=== PATIENT | female | born 1960 | race Caucasian/White ===

== ENCOUNTER 2020-11-15 08:02 | Outpatient (RCR) | payer MEDICARE, BC | END 2020-11-15 15:55 | LOC: OPPGERO 08:02 | DX: F25.9 Schizoaffective disorder, unspecified (principal); F43.10 Post-traumatic stress disorder, unspecified; Z98.890 Other specified postprocedural states; Z86.73 Personal history of transient ischemic attack (TIA), and cerebral infarction without residual deficits; E03.9 Hypothyroidism, unspecified; M06.9 Rheumatoid arthritis, unspecified; K58.9 Irritable bowel syndrome, unspecified; M79.7 Fibromyalgia; I34.0 Nonrheumatic mitral (valve) insufficiency; Z79.899 Other long term (current) drug therapy; Z62.810 Personal history of physical and sexual abuse in childhood ==

== ENCOUNTER 2020-11-16 16:13 | Outpatient (RCR) | payer MEDICARE, BC | END 2020-12-15 13:55 | disposition still patient (30) | LOC: OPPGERO 16:13 | DX: F25.9 Schizoaffective disorder, unspecified (principal); F43.10 Post-traumatic stress disorder, unspecified; R45.851 Suicidal ideations; Z79.899 Other long term (current) drug therapy; Z98.890 Other specified postprocedural states ==

== ENCOUNTER 2020-12-16 09:52 | Outpatient (RCR) | payer MEDICARE, BC | END 2021-01-15 18:04 | disposition home or self-care (01) | LOC: OPPGERO 09:52 | DX: F43.10 Post-traumatic stress disorder, unspecified (principal); G24.01 Drug induced subacute dyskinesia; F25.0 Schizoaffective disorder, bipolar type; K58.0 Irritable bowel syndrome with diarrhea; M79.7 Fibromyalgia; Z81.1 Family history of alcohol abuse and dependence; Z86.73 Personal history of transient ischemic attack (TIA), and cerebral infarction without residual deficits; Z62.810 Personal history of physical and sexual abuse in childhood; Z73.6 Limitation of activities due to disability ==

== ENCOUNTER 2021-02-15 16:00 | Outpatient (RCR) | payer MEDICARE, BC | END 2021-03-16 12:38 | disposition home or self-care (01) | LOC: OPPGERO 16:00 | DX: F43.12 Post-traumatic stress disorder, chronic (principal); F25.0 Schizoaffective disorder, bipolar type; M06.9 Rheumatoid arthritis, unspecified; K58.9 Irritable bowel syndrome, unspecified; Z62.810 Personal history of physical and sexual abuse in childhood; Z62.811 Personal history of psychological abuse in childhood; Z86.73 Personal history of transient ischemic attack (TIA), and cerebral infarction without residual deficits; Z73.6 Limitation of activities due to disability; Z82.49 Family history of ischemic heart disease and other diseases of the circulatory system ==

== ENCOUNTER 2021-03-20 07:57 | Outpatient (RCR) | payer MEDICARE, BC | END 2021-04-17 12:01 | disposition home or self-care (01) | LOC: OPPGERO 07:57 | DX: F25.0 Schizoaffective disorder, bipolar type (principal); F43.12 Post-traumatic stress disorder, chronic; R45.851 Suicidal ideations; Z98.890 Other specified postprocedural states; Z79.899 Other long term (current) drug therapy; I10 Essential (primary) hypertension ==

== ENCOUNTER 2021-05-16 07:58 | Outpatient (RCR) | payer MEDICARE, BC | END 2021-06-15 19:36 | disposition home or self-care (01) | LOC: OPPGERO 07:58 | DX: F25.0 Schizoaffective disorder, bipolar type (principal); F43.12 Post-traumatic stress disorder, chronic; Z79.899 Other long term (current) drug therapy; Z91.51 Personal history of suicidal behavior; Z63.4 Disappearance and death of family member; Z86.73 Personal history of transient ischemic attack (TIA), and cerebral infarction without residual deficits; Z62.810 Personal history of physical and sexual abuse in childhood; Z62.811 Personal history of psychological abuse in childhood ==

== ENCOUNTER 2021-06-19 12:19 | Outpatient (RCR) | payer MEDICARE, BC | END 2021-07-14 16:13 | disposition home or self-care (01) | LOC: OPPGERO 12:19 | DX: F25.0 Schizoaffective disorder, bipolar type (principal); F43.12 Post-traumatic stress disorder, chronic; E03.9 Hypothyroidism, unspecified; Z81.1 Family history of alcohol abuse and dependence ==

== ENCOUNTER 2021-07-17 10:16 | Outpatient (RCR) | payer MEDICARE, BC | END 2021-08-15 20:57 | disposition home or self-care (01) | LOC: OPPGERO 10:16 | DX: F25.0 Schizoaffective disorder, bipolar type (principal); F43.12 Post-traumatic stress disorder, chronic; Z86.73 Personal history of transient ischemic attack (TIA), and cerebral infarction without residual deficits; E03.9 Hypothyroidism, unspecified; Z79.899 Other long term (current) drug therapy; Z91.410 Personal history of adult physical and sexual abuse ==

== ENCOUNTER 2021-08-16 10:34 | Outpatient (RCR) | payer MEDICARE, BC | END 2021-09-14 07:31 | disposition still patient (30) | LOC: OPPGERO 10:34 | DX: F39 Unspecified mood [affective] disorder (principal); Z62.810 Personal history of physical and sexual abuse in childhood ==

== ENCOUNTER 2021-09-15 07:53 | Outpatient (RCR) | payer MEDICARE, BC | END 2021-10-13 14:28 | disposition home or self-care (01) | LOC: OPPGERO 07:53 | DX: F25.0 Schizoaffective disorder, bipolar type (principal); F43.12 Post-traumatic stress disorder, chronic; Z62.810 Personal history of physical and sexual abuse in childhood ==

== ENCOUNTER 2021-10-16 09:36 | Outpatient (RCR) | payer MEDICARE, BC | END 2021-11-15 16:42 | disposition home or self-care (01) | LOC: OPPGERO 09:36 | DX: F43.10 Post-traumatic stress disorder, unspecified (principal); F31.9 Bipolar disorder, unspecified; I10 Essential (primary) hypertension ==

== ENCOUNTER 2022-01-16 08:42 | Outpatient (RCR) | payer MEDICARE, BC | END 2022-02-14 15:41 | disposition still patient (30) | LOC: OPPGERO 08:42 | DX: F20.9 Schizophrenia, unspecified (principal); F43.12 Post-traumatic stress disorder, chronic; Z79.899 Other long term (current) drug therapy ==

== ENCOUNTER 2022-03-20 07:59 | Outpatient (RCR) | payer MEDICARE, BC | END 2022-04-17 15:36 | disposition home or self-care (01) | LOC: OPPGERO 07:59 | DX: F25.0 Schizoaffective disorder, bipolar type (principal); F43.12 Post-traumatic stress disorder, chronic; E03.9 Hypothyroidism, unspecified ==